=== PATIENT | female | born 1985 | race Hispanic/Latino ===

== ENCOUNTER 2022-05-31 12:45 | Emergency (ER) | payer BC ==
[2022-05-31] MEDS ORDERED: diphenhydrAMINE 50 MG/ML VIAL ONE (13:38)
[2022-05-31] MEDS ORDERED: Metoclopramide HCl 10 MG/2 ML VIAL ONE (13:39)
[2022-05-31] MEDS ORDERED: Ketorolac Tromethamine 30 MG/ML VIAL ONE (13:39)
[2022-05-31 13:40] LABS: #Monocytes 0.3 10x3/uL (0.0-1.1); #Neutrophils 4.5 10x3/uL (1.5-8.4); %Basophils 0.4 % (0.0-2.0); %Eosinophils 0.4 % (0.0-6.0); %Lymphocytes 29.3 % (18.0-47.0); %Monocytes 4.4 % (0.0-10.0); %Neutrophils 65.1 % (40.0-75.0); Hemoglobin 14.2 g/dL (12.0-15.5); Mean Corpuscular HGB CONC 33.7 g/dL (32.0-36.0); Mean Corpuscular Hemoglobin 28.9 pg (27.0-33.0); Mean Corpuscular Volume 85.7 fl (81.6-98.3); Mean Platelet Volume 9.7 fl (7.4-10.4); Platelet Count 291 10x3/uL (150-450); RBC Distribution Width 12.5 % (11.5-14.5); Red Blood Cell (RBC) Count 4.91 10x6/uL (3.90-5.03); White Blood Cell (WBC) Count 6.9 10x3/uL (3.5-10.5)
[2022-05-31 13:47] LABS: BHCG - Serum Negative (NEGATIVE); Pregs Control Background? CLEAR/WHITE (CLR/WHITE); Pregs Control Bar Appear? YES (CONTROL BAR)
[2022-05-31 16:59] LABS: ALT (SGPT) 26 U/L (8-55); AST (SGOT) 21 U/L (5-34); Albumin 4.5 g/dL (3.5-5.0); Alkaline Phosphatase 68 U/L (40-110); Anion Gap 15 mmol/L (10-20); BUN (Urea Nitrogen) 8 mg/dL (7.0-18.7); Bilirubin, Total 0.4 mg/dL (0.2-1.2); Calc. Creatinine Clearance 0 mL/min (70-130); Calcium 9.8 mg/dL (7.8-10.44); Carbon Dioxide 23 mmol/L (22-29); Chloride 104 mmol/L (98-107); Estimated GFR 100; Globulin 3.1 g/dL (2.4-3.5); Glucose 83 mg/dL (70-105); Potassium 4.1 mmol/L (3.5-5.1); Protein, Total 7.6 g/dL (6.0-8.3); Sodium 138 mmol/L (136-145)
== END 2022-05-31 16:34 | disposition home or self-care (01) ==
LOC: CSHERS 12:45
DX: G43.809 Other migraine, not intractable, without status migrainosus (principal); R20.2 Paresthesia of skin
CPT/HCPCS: 36416; 70450; 80053; 84484; 84703; 85025; 93005; 96365; 96375; J1200; J1885; J2765

== ENCOUNTER 2022-06-30 14:54 | Emergency (ER) | payer BC ==
[2022-06-30] MEDS ORDERED: Tetracaine 0.5% PF 4 ML BOT ONE (15:36)
[2022-06-30] MEDS ORDERED: Fluorescein Opthalmic Strip ONE ×2 (15:37→16:41)
[2022-06-30] MEDS ORDERED: Proparacaine 0.5% Opth 15 ML BOT EA EYE SCH (16:15)
[2022-06-30] MEDS ORDERED: Ketorolac Tromethamine 30 MG/ML VIAL ONE (16:41)
[2022-06-30] MEDS ORDERED: diphenhydrAMINE 50 MG/ML VIAL ONE (16:41)
[2022-06-30] MEDS ORDERED: Metoclopramide HCl 10 MG/2 ML VIAL ONE (16:41)
== END 2022-06-30 18:00 | disposition home or self-care (01) ==
LOC: CSHERS 14:54
DX: H57.11 Ocular pain, right eye (principal); Z86.73 Personal history of transient ischemic attack (TIA), and cerebral infarction without residual deficits; G43.909 Migraine, unspecified, not intractable, without status migrainosus
CPT/HCPCS: 96365; 96375; J1200; J1885; J2765

== ENCOUNTER 2025-04-22 09:49 | Emergency (ER) | payer BC ==
[2025-04-22] MEDS ORDERED: Ketorolac Tromethamine 30 MG (1 mL) VIAL ONE (10:48)
[2025-04-22 11:16] LABS: #Basophils 0.03 10x3/uL (0.0-0.2); #Eosinophils 0.11 10x3/uL (0.0-0.5); #Monocytes 0.25 10x3/uL (0.0-1.1); #Neutrophils 3.39 10x3/uL (1.5-8.4); %Basophils 0.5 % (0.0-2.0); %Eosinophils 2.0 % (0.0-6.0); %Lymphocytes 32.0 % (18.0-47.0); %Monocytes 4.5 % (0.0-10.0); %Neutrophils 60.6 % (40.0-75.0); Hematocrit 41.8 % (34.9-44.5); Hemoglobin 14.1 g/dL (12.0-15.5); Mean Corpuscular Hemoglobin 29.5 pg (27.0-33.0); Mean Corpuscular Volume 87.4 fL (81.6-98.3); Platelet Count 252 10x3/uL (150-450); Red Blood Cell (RBC) Count 4.78 10x6/uL (3.90-5.03); White Blood Cell (WBC) Count 5.59 10x3/uL (3.5-10.5)
[2025-04-22 11:38] LABS: ALT (SGPT) 48 U/L (Less than 34); AST (SGOT) 28 U/L (11-34); Albumin 4.3 g/dL (3.1-4.5); Alkaline Phosphatase 53 U/L (40-110); Anion Gap 14 mmol/L (10-20); BUN (Urea Nitrogen) 14 mg/dL (7.0-18.7); Bilirubin, Total 0.7 mg/dL (0.3-1.2); Calc. Creatinine Clearance 0 mL/min (70-130); Calcium 9.7 mg/dL (7.8-10.44); Carbon Dioxide 22 mmol/L (22-29); Chloride 105 mmol/L (98-107); Globulin 3.8 g/dL (2.4-3.5); Glucose 78 mg/dL (70-105); Potassium 3.9 mmol/L (3.5-5.1); Sodium 137 mmol/L (136-145)
== END 2025-04-22 14:54 | disposition home or self-care (01) ==
LOC: CSHERS 09:49
DX: M54.50 Low back pain, unspecified (principal); Z86.73 Personal history of transient ischemic attack (TIA), and cerebral infarction without residual deficits
CPT/HCPCS: 72157; 72158; 80053; 85025; 86140; 96374; J1885

== ENCOUNTER 2025-07-29 05:50 | Day surgery (SDC) | payer BC ==
[2025-07-22 15:32] VITALS: BMI 30.2
[2025-07-29] MEDS ORDERED: Lidocaine 2% MPF 10 ML AMP (For Epidural Use) ONE (06:43)
[2025-07-29] MEDS ORDERED: Bupivacaine HCl 0.5%/Epinephrine 1:200,000/PF 30 ml Vial ONE (06:44)
[2025-07-29] MEDS ORDERED: Scopolamine 1 mg/72 hour Patch ONE (07:34)
[2025-07-29] MEDS ORDERED: PROPOFOL 20 ML ONE (07:53)
[2025-07-29] MEDS ORDERED: Rocuronium Bromide 10 MG/ML (10ML VIAL) ONE (07:53)
[2025-07-29] MEDS ORDERED: CEFAZOLIN 2 GM VIAL ONE (08:44)
[2025-07-29] MEDS ORDERED: SUGAMMADEX SODIUM 200 MG/2 ML VIAL ONE (09:34)
[2025-07-29] MEDS ORDERED: HYDROmorphone 2 MG/ML VIAL ONE (10:53)
[2025-07-29] MEDS ORDERED: HYDROcodone/Acetaminophen 5/325 mg Tablet ONE (11:54)
== END 2025-07-29 12:40 | disposition home or self-care (01) ==
LOC: CSHSDC 05:50
PROVIDERS: ATTEND Student in an Organized Health Care Education/Training Program
PROC: 0JB70ZZ Excision of Back Subcutaneous Tissue and Fascia, Open Approach (ICD-10-PCS; principal; 2025-07-29)
DX: D17.1 Benign lipomatous neoplasm of skin and subcutaneous tissue of trunk (principal); K21.9 Gastro-esophageal reflux disease without esophagitis; F41.9 Anxiety disorder, unspecified; Z86.73 Personal history of transient ischemic attack (TIA), and cerebral infarction without residual deficits; Z90.49 Acquired absence of other specified parts of digestive tract; Z90.710 Acquired absence of both cervix and uterus; Z91.040 Latex allergy status; Z88.5 Allergy status to narcotic agent; Z79.899 Other long term (current) drug therapy
CPT/HCPCS: 88304; J1100; J1171; J2704; J3010